=== PATIENT | female | born 1975 | race Asian ===

== ENCOUNTER 2018-01-04 07:49 | Emergency (ER) | payer MEDICAID ==
[~2018-01-04] VITALS: Ht 160 cm; Wt 68.0 kg
[2018-01-04 07:54] VITALS: BP_SYST 106
[2018-01-04 08:17] LABS: BILIRUBIN,URINE NEGATIVE (NEGATIVE); BLOOD, URINE 3+ (NEGATIVE); CLARITY/URINE CLEAR (CLEAR); COLOR,URINE YELLOW (YELLOW); GLUCOSE,URINE NEGATIVE (NEGATIVE); KETONES,URINE NEGATIVE (NEGATIVE); LEUKOCYTE ESTERASE ,URINE 2+ (NEGATIVE); NITRITE, URINE NEGATIVE (NEGATIVE); PH,URINE 5.5 (5.0-8.0); PROTEIN URINE 1+ (NEGATIVE); UROBILINOGEN,URINE 0.2 (0.2-1.0)
[2018-01-04 08:27] LABS: BACTERIA,URINE FEW /HPF (None Seen); MUCUS,URINE 1+ /LPF (None Seen); WBC,URINE 50-80 /HPF (0-3)
[2018-01-04 08:50] VITALS: BP_SYST 110
== END 2018-01-04 08:46 | disposition home or self-care (01) ==
LOC: SED 07:49
DX: N39.0 Urinary tract infection, site not specified (principal); E03.9 Hypothyroidism, unspecified
CPT/HCPCS: 81000-TC; 81025; 87086; 87186-TC; 99284

== ENCOUNTER 2020-05-11 16:07 | Emergency (ER) | payer MEDICAID, SELFPAY ==
[~2020-05-11] VITALS: Ht 160 cm; Wt 65.8 kg
[2020-05-11 16:07] VITALS: BP_SYST 137
--- NOTE | 2020-05-11 16:10 | NUR ---
BROUGHT INTO OUTSIDE TENT AND TRIAGED. WILL ASSUME CARE
--- NOTE | 2020-05-11 16:18 | NUR ---
DR QUIROZ EVALUATING PT IN TENT
--- NOTE | 2020-05-11 17:22 | NUR ---
Patient given written and verbal discharge instructions and verbalizes understanding. ER MD discussed with patient the results and treatment provided. Patient in stable condition. ID arm band removed. Rx of NONE given. Patient educated on pain management and to follow up with PMD. Pain Scale 0/10. Opportunity for questions provided and answered. Medication side effect fact sheet provided.
== END 2020-05-11 17:22 | disposition home or self-care (01) ==
LOC: SED 16:07
DX: U07.1 COVID-19 (principal); E03.9 Hypothyroidism, unspecified
CPT/HCPCS: 86710; 99283; C9803; U0003

== ENCOUNTER 2021-12-23 07:25 | Emergency (ER) | payer MEDICAID ==
[~2021-12-23] VITALS: Ht 160 cm; Wt 63.0 kg
[2021-12-23 07:40] VITALS: BP_SYST 116
[2021-12-23] MEDS ORDERED: GYNECR VG (08:04)
[2021-12-23] MEDS ORDERED: DIF100 PO (08:04)
[2021-12-23 08:13] VITALS: BP_SYST 116
== END 2021-12-23 08:13 | disposition home or self-care (01) ==
LOC: SED 07:25
DX: B37.3 Candidiasis of vulva and vagina (principal)
CPT/HCPCS: 81002; 81025; 99283